=== PATIENT | male | born 1990 | race Caucasian/White ===

== ENCOUNTER 2021-08-23 09:38 | Outpatient (CLI) | payer OTHER, SELFPAY ==
--- NOTE | 2021-08-23 09:49 | EST_ITS ---
Patient Info Name: Alonso Leigh Age: 30 years : 1990 Gender: Male Ht: 72 in Wt: 232 lbs BSA: 2.34 m2 HR: 76 bpm BP: 126 / 90 mmHg Heart Rhythm: Sinus Rhythm Exam Date: 08/23/2021 10:48 AM Exam Location: [facility] Stress Patient Status: Outpatient Admit Date: 08/23/2021 Staff Ordering Physician: Amelie Chavis NP Attending Provider: Amelie Chavis NP Exercise Technologist: Nellie Gardiner CT Exercise Physician: Ahmet Hartmann DO Exam Type: CA stress test treadmill Study Info Indications R07.9 - Chest pain, unspecified A treadmill exercise stress test was performed. Summary 1. 1. Negative Rogers exercise stress test for ischemic ST changes by ECG criteria. 2. 2. Good functional capacity, achieving 12 METs of workload. 3. 3. Appropriate HR response to exercise. 4. 4. Appropriate HR recovery at 1 minute post exercise. 5. 5. No imaging with stress testing. 6. 6. Patient informed of the above results. Protocol: Rogers Stress ECG Details Stage: REST Duration (min): 1 min : 4 sec Speed (mph): 0.0 Grade (%): 0 HR (bpm): 70 SBP (mmHg): 119 DBP (mmHg): 43 METS: --- Stage: REST Duration (min): 8 min : 31 sec Speed (mph): 0.0 Grade (%): 0 HR (bpm): 72 SBP (mmHg): 126 DBP (mmHg): 90 METS: --- Stage: REST Duration (min): 18 min : 8 sec Speed (mph): 0.0 Grade (%): 0 HR (bpm): 92 SBP (mmHg): 126 DBP (mmHg): 90 METS: --- Stage: STAGE 1 Duration (min): 1 min : 0 sec Speed (mph): 1.7 Grade (%): 10 HR (bpm): 109 SBP (mmHg): 126 DBP (mmHg): 90 METS: --- Stage: STAGE 1 Duration (min): 2 min : 0 sec Speed (mph): 1.7 Grade (%): 10 HR (bpm): 117 SBP (mmHg): 126 DBP (mmHg): 90 METS: --- Stage: STAGE 1 Duration (min): 3 min : 0 sec Speed (mph): 1.7 Grade (%): 10 HR (bpm): 118 SBP (mmHg): 138 DBP (mmHg): 83 METS: --- Stage: STAGE 2 Duration (min): 1 min : 0 sec Speed (mph): 2.5 Grade (%): 12 HR (bpm): 125 SBP (mmHg): 138 DBP (mmHg): 83 METS: --- Stage: STAGE 2 Duration (min): 2 min : 0 sec Speed (mph): 2.5 Grade (%): 12 HR (bpm): 129 SBP (mmHg): 158 DBP (mmHg): 86 METS: --- Stage: STAGE 2 Duration (min): 3 min : 0 sec Speed (mph): 2.5 Grade (%): 12 HR (bpm): 126 SBP (mmHg): 158 DBP (mmHg): 86 METS: --- Stage: STAGE 3 Duration (min): 1 min : 0 sec Speed (mph): 3.4 Grade (%): 14 HR (bpm): 148 SBP (mmHg): 128 DBP (mmHg): 80 METS: --- Stage: STAGE 3 Duration (min): 2 min : 0 sec Speed (mph): 3.4 Grade (%): 14 HR (bpm): 145 SBP (mmHg): 128 DBP (mmHg): 80 METS: --- Stage: STAGE 3 Duration (min): 3 min : 0 sec Speed (mph): 3.4 Grade (%): 14 HR (bpm): 151 SBP (mmHg): 132 DBP (mmHg): 85 METS: ---
== END 2021-08-23 09:39 | disposition home or self-care (01) ==
LOC: ANHCARD 09:42
PROVIDERS: PCP Nurse Practitioner; Visit Provider Nurse Practitioner
DX: R07.89 Other chest pain (principal)
CPT/HCPCS: 93017